=== PATIENT | male | born 1930 | race Caucasian/White ===

== ENCOUNTER 2017-07-23 19:13 | Observation (INO) ==
[2017-07-23] MEDS ORDERED: NITROGLYCERIN 2% OINT 1 INCH/GM PACK TOP STA (19:54)
[2017-07-23] MEDS ORDERED: ONDANSETRON 4 MG/2 ML VIAL IV STA (19:54)
[2017-07-23] MEDS ORDERED: MECLIZINE 25 MG TABLET PO STA (19:54)
[2017-07-23] MEDS ORDERED: ASPIRIN 325 MG TABLET PO STA (19:54)
[2017-07-23] MEDS ORDERED: MORPHINE 2 MG/1 ML SYRINGE IV STA (19:54)
[2017-07-23] MEDS ORDERED: ALUM/MAG/SIMETH/LIDO VISC 1:1 30 ML BOTTLE PO STA (19:54)
[2017-07-23] MEDS ORDERED: SODIUM CHLORIDE 0.9% 500 ML IV STA (19:54)
[2017-07-23] MEDS ORDERED: ONDANSETRON 4 MG/2 ML VIAL ONE (20:00)
[2017-07-23] MEDS ORDERED: NITROGLYCERIN 2% OINT 1 INCH/GM PACK TOP ONE (20:00)
[2017-07-23] MEDS ORDERED: MORPHINE 2 MG/1 ML SYRINGE ONE (20:00)
[2017-07-23] MEDS ORDERED: MECLIZINE 25 MG TABLET ONE (20:01)
[2017-07-23] MEDS ORDERED: ALUM/MAG/SIMETH/LIDO VISC 1:1 30 ML BOTTLE PO ONE (20:01)
--- NOTE | 2017-07-23 20:19 | CT Report ---
History: Near syncope. Dizziness. Nausea Date: 07/23/2017 Study: CT head without contrast Comparison exam: No previous head CT currently available Transaxial CT sections were obtained through the brain without contrast. The ventricles are midline in position without evidence of hydrocephalus. There is no mass or area of parenchymal hemorrhage. There is no gross CT evidence of acute cortical stroke. There is mild diffuse cerebral atrophy. There is a small amount of ill-defined low density in the periventricular white matter without mass effect compatible with changes of small vessel disease. There is an area of decreased density in the right mid thalamus laterally a 6 mm compatible with small lacunar infarct of uncertain chronicity. There is some mild heterogeneity of the ramesh which may be related to small vessel disease. There is no extra-axial hematoma. The sinuses are generally clear. There is no obvious skull fracture. 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 There is hyperdense opacity throughout the posterior chamber the right lobe compatible with previous vitreous hemorrhage. 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 No parenchymal hemorrhage. No definite acute intracranial process. Previous vitreous hemorrhage of the right eye This CT exam was performed using one or more the following dose reduction techniques: Automated exposure control, adjustment of the MA and/or KV according to patient size, or use of iterative reconstruction technique. PROCEDURE INTERPRETED AT [facility] DEPARTMENT OF RADIOLOGY Final Report Signed by: Dr. Mea Feliciano
--- NOTE | 2017-07-23 20:23 | Emergency Department Note ---
Benji Velez Gwan, am scribing for, and in the presence of, Bebo Card MD 20 :01. Kyaw Velez Charles R, MD, personally performed the services described in this documentation, ascribed by Mango Leblanc in my presence, and it is both accurate and complete . Arrival - Arrival Chief Complaint: Chest Pain ED Nursing Triage Note: pt brought in via ems with c/o dizziness, n/v. family reports pt had diaphoresis, chest pressure at onset. pt was given an aspirin per family. zofran 4mg en route. chest pressure has resolved at time of triage. pt denies any pmhx or home medications. Mode of Arrival: Stretcher Limitations: No Limitations Source: Patient, Old Records Reviewed, RN Notes Reviewed Time Seen by Provider: 07/23/17 19:38 - History of Present Illness HPI Narrative: Patient is a 87 y/o male who presents to the ED with a c/o dizziness, middle chest heaviness and n/v with an onset 1700 tonight. Patient stated that he was sitting at his computer when he decided to get up and turn on the news. Once he was at an upright standing position, he became dizzy. This prompted him to sit on the couch. He then began to have heaviness in his chest, N/V and diaphoresis. This prompted him to report to ED for further evaluation. Patient denies having a PCP, that his discomfort radiated to any other part of his body , any numbness/tingling in his face, any heart /medical problems or any FMHx of heart disease. During exam, patient stated that chest heaviness has subsided but stated that he is still dizzy. No other problems/complaints reported in ED. Onset (ago): hour(s) Consistency: constant Severity: moderate Allergies/Adverse Reactions: Allergies Allergy/AdvReac Type Severity Reaction Status Date / Time No Known Allergies Allergy Unverified 07/23/17 19:25 Home Medications: Home Medications Medication Instructions Recorded Confirmed Type No Known Home Medications [No 07/23/17 07/23/17 History Known Home Medications] Review of System - Review of System 12 point system: reviewed and no additional remarkable complaints except as stated - Review of System Constitutional: Present: as per HPI, diaphoresis. Absent: chills, fever Cardiovascular: Present: as per HPI, chest pain Gastrointestinal: Present: as per HPI, nausea, vomiting Neurological: Present: as per HPI, other (dizziness) Medical,Surgical,& Family Hx - Medical History HEENT: History of: Eye Problem (blind right eye) - Social History Smoking Status: Never smoker Frequency of Alcohol Use: None Type of Drug Use: None Exam Vital Signs: Vital Signs Temperature 97.5 F L 07/23/17 19:13 Pulse Rate 63 07/23/17 19:13 Respiratory Rate 18 07/23/17 19:13 Blood Pressure 188/96 07/23/17 19:13 O2 Sat by Pulse Oximetry 96 07/23/17 19:13 - General General appearance: alert, in no apparent distress - Head Head exam: Present: atraumatic, normocephalic - Eye Eye exam: Present: nystagmus (Worse when patient sits upright.). 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 ) - ENT ENT exam: Present: normal oropharynx, mucous membranes moist, TM's normal bilaterally, normal external ear exam - Neck Neck exam: Present: full ROM, trachea midline. Absent: tenderness - Chest Chest inspection: Present: symmetric chest wall rise. Absent: tenderness - Respiratory Respiratory exam: Present: normal lung sounds bilaterally. Absent: respiratory distress - Cardiovascular Cardiovascular exam: Present: regular rate, normal rhythm, normal heart sounds. Absent: murmur - Abdominal Exam Abdominal exam: Present: soft, normal bowel sounds. Absent: distention, tenderness - Extremities Exam Extremities exam: Present: full ROM. Absent: tenderness - Back Exam Back exam: Present: full ROM. Absent: tenderness - Neurological Exam Neurological exam: Present: alert, oriented X3, CN II-XII intact. Absent: motor sensory deficit - Psychiatric Psychiatric exam: Present: normal affect, normal mood - Skin Skin exam: Present: diaphoresis Course - Consultations Consultation #1: Hospitalist will admit patient Time: 21:55 Results - Labs CBC & BMP: 07/23/17 20:11 07/23/17 20:11 Lab Results: I have reviewed the patients labs Labs: Laboratory Tests 07/23/17 20:11 WBC 10.3 RBC 4.59 Hgb 15.0 Hct 43.0 Plt Count 187 Neut % (Auto) 80.1 H Lymph % (Auto) 13.4 L Neut # (Auto) 8.3 H Laboratory Tests 07/23/17 07/23/17 20:11 20:11 INR 1.0 PT Patient/Control Mix 10.7 D-Dimer, Quantitative 0.9 Sodium 142 Potassium 4.5 Chloride 107 Carbon Dioxide 31 BUN 21 H Creatinine 1.20 Glucose 109 H - Diagnostic Findings Procedure: Chest x-ray: report reviewed by me (Mild scar or subsegmental atelectasis left mid to lower lung. No definite acute process. 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 No parenchymal hemorrhage. no definite acute intracranial process. Previously vitreous hemorrhage of the right eye. ) Disposition Clinical Impression: Atypical chest pain, Dizziness, Nausea & vomiting, Near syncope Case discussed with: patient, patient's family Disposition: Still a Patient Condition: Stable Time of Disposition: 21:55
[2017-07-23 20:31] LABS: Basophils # 0.1 10*3/uL (0.0-0.2); Basophils % 0.5 % (0.0-0.8); Eosinophils # 0.1 10*3/uL (0.0-0.87); Eosinophils % 1.1 % (0.00-10.9); Immature Granulocytes % 0.4 %; Immature Granulocytes Absolute 0.04 #; Lymphocytes # 1.4 10*3/uL (1.4-4.0); Lymphocytes % 13.4 % (21.2-54.2); Mean Corpuscular HGB Conc 34.9 GM/DL (32-36); Mean Corpuscular Hemoglobin 33 PG (27-34); Mean Corpuscular Volume 93.7 FL (87-102); Mean Platelet Volume 10.2 FL (9.6-12.0); Monocytes # 0.5 10*3/uL (0.11-0.8); Monocytes % 4.5 % (1.7-12.7); Neutrophils # 8.3 10*3/uL (1.4-7.4); Neutrophils % 80.1 % (38.7-73.9); Platelet Count 187 T/CUMM (130-400); Red Blood Count 4.59 MC/CUMM (3.8-5.5); Red Cell Distribution Width 12.8 % (9.3-17.3); White Blood Count 10.3 T/CUMM (4-12)
--- NOTE | 2017-07-23 20:37 | XRay Report ---
History: Chest pain Date: 07/23/2017 Study: Chest x-ray AP portable Comparison exam: No previous The cardiac silhouette is upper normal in size. There is no mediastinal mass. The pulmonary vasculature is not engorged. There is some minor strandy subsegmental atelectasis or scar in the left mid to lower lung. There is no jatinder pneumonia. There is no gross pleural effusion. There is no acute osseous abnormality. Impression: Mild scar or subsegmental atelectasis left mid to lower lung. No definite acute process PROCEDURE INTERPRETED AT [facility] DEPARTMENT OF RADIOLOGY Final Report Signed by: Dr. Mae Feliciano
[2017-07-23 20:48] LABS: PT Patient Result 10.7 SECS
[2017-07-23 21:16] LABS: Magnesium 2.3 MG/DL (1.8-2.4)
[2017-07-23 21:22] LABS: Albumin 3.7 G/DL (3.4-5.0); Osmolality,Calculated 286.1 MOS/KG (273-304); Potassium 4.5 MMOL/L (3.5-5.1); Total Protein 6.7 G/DL (6.4-8.3)
--- NOTE | 2017-07-23 22:33 | Hospitalist History & Physical ---
Assessment and Plan (1) Atypical chest pain Status: Acute Current Visit: Yes (2) Dizziness Status: Acute Current Visit: Yes (3) Nausea and vomiting Status: Acute Assessment and plan: Our plan for this patient will be admitting him to a monitored bed. Will consult cardiology to evaluate this chest pain. Patient has a stroke per CT scan I believe that this is old. Patient has had no recent change neurologically.. But I do think it would be a good idea to check carotid Dopplers 2D ultrasound and fasting lipid profile. Current Visit: Yes History of Present Illness Chief complaint: Dizziness chest tightness History of present illness: Mr. James is a 87 year old male with no real significant medical problems presents to our ER [facility]. Patient was out cutting his grass this afternoon. He sat down on the computer when he got up he felt dizzy. At that time he sat down and a little while later he got nauseated and started throwing up. The checked his blood pressure was elevated. Patient then developed a pressure sensation in his chest it was a tightness in it to stay there did not radiate up to his arm or shoulder. He still feels a little lightheaded. He denies shortness of breath but did become diaphoretic. Patient was found to have a stroke stroke on CT scan and I was consulted to admit him through the emergency room. Home Medications Medication Instructions Recorded Confirmed Type No Known Home Medications [No 07/23/17 07/23/17 History Known Home Medications] Allergies Allergy/AdvReac Type Severity Reaction Status Date / Time No Known Allergies Allergy Unverified 07/23/17 19:25 Medical,Surgical,& Family Hx - Medical History HEENT: History of: Eye Problem (blind right eye) - Surgical History Additional Surgical History: eye surgeries - Family History Family History: Reports;: Family Hypertension - Social History Smoking Status: Never smoker Frequency of Alcohol Use: None Type of Drug Use: None 12 point system: reviewed and no additional remarkable complaints except as stated Exam - Constitutional Vitals: Period Temp Pulse Resp BP Sys/Manzo Pulse Ox Last 24 Hr 97.5 F-97.5 F 63-63 18-18 188-188/96-96 96 General appearance: normal weight - Head Head exam: Present: normal inspection - Eye Eye exam: Present: other (Patient has scarring on his right eye consistent with his injury) - ENT ENT exam: Present: normal exam - Neck Neck exam: Present: normal inspection - Respiratory Respiratory exam: Present: clear to auscultation bilaterally - Cardiovascular Cardiovascular exam: Present: regular rate and rhythm - GI/Abdominal GI/Abdominal exam: Present: normal bowel sounds - Extremities Exam Extremities exam: Present: normal inspection - Back Exam Back exam: Present: normal inspection - Neurological Exam Neurological exam: Present: alert - Psychiatric Psychiatric exam: Present: normal affect, normal mood - Skin Skin exam: Present: normal color Results - Labs CBC & BMP: 07/23/17 20:11 07/23/17 20:11
[2017-07-23] MEDS ORDERED: ACETAMINOPHEN 325 MG TABLET PO PRN (22:37)
[2017-07-23] MEDS ORDERED: ONDANSETRON 4 MG/2 ML VIAL IV PRN (22:37)
[2017-07-23] MEDS ORDERED: ZALEPLON 5 MG CAPSULE PO PRN (22:37)
[2017-07-23] MEDS ORDERED: LABETALOL 20 MG/4 ML SYRINGE IV PRN (22:37)
[2017-07-24] MEDS: NITROGLYCERIN 2% OINT 1 INCH/GM PACK TOP SCH ×4 (00:31→19:43)
[2017-07-24 01:21] LABS: Risk Ratio 5.07; VLDL CHOLESTEROL 14.2 MG/DL
--- NOTE | 2017-07-24 02:20 | EKG Report ---
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
[2017-07-24] MEDS: ENOXAPARIN 40 MG/0.4 ML SYRINGE SUBCUT SCH ×2 (07:16→14:57)
--- NOTE | 2017-07-24 07:49 | EKG Report ---
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
--- NOTE | 2017-07-24 08:30 | Ultrasound Report ---
Carotid artery ultrasound Indication: Vertigo Comparison: None available Color Doppler flow and spectral analysis was performed. Findings: Small amount of atherosclerotic plaque is present in both proximal internal carotid arteries. Right peak systolic velocity: Right CCA:57.2 Right proximal Internal Carotid Artery is 68.4 cm/s. Ratio of flow is 1.3 Right distal Internal Carotid is 76.1 cm/s . Left peak systolic velocity: Left CCA:83.1 Left proximal Internal carotid Artery is 38.7 cm/s . Ratio of flow is 0.6 Left distal Internal carotid Artery is 52.9cm/s Bilateral antegrade vertebral flow is seen. Impression: No evidence of hemodynamically significant stenosis is seen, 0-49% estimated stenosis. Consensus conference on the carotid ultrasound criteria used. Ultrasound images were captured and stored. PROCEDURE INTERPRETED AT [facility] DEPARTMENT OF RADIOLOGY Final Report Signed by: Dr. Kvng Brooks
--- NOTE | 2017-07-24 08:44 | Cardiology Consult Note ---
Assessment and Plan - Time spent with patient Time spent with patient: Greater than 30 minutes (1) Abnormal head CT Status: Acute Assessment and plan: SEE PLAN OF CARE LISTED BELOW. Current Visit: Yes (2) Atypical chest pain Status: Resolved Assessment and plan: SEE PLAN OF CARE LISTED BELOW. Current Visit: Yes (3) Dizziness Status: Acute Assessment and plan: SEE PLAN OF CARE LISTED BELOW. Current Visit: Yes (4) Nausea and vomiting Status: Acute Assessment and plan: SEE PLAN OF CARE LISTED BELOW. Current Visit: Yes (5) Hypertension Status: Acute Assessment and plan: SEE PLAN OF CARE LISTED BELOW. Current Visit: Yes (6) Dyslipidemia Status: Acute Assessment and plan: SEE PLAN OF CARE LISTED BELOW. Current Visit: Yes History of Present Illness - Data of Consult Patient: new to practice Consult date: 07/24/17 Requesting Physician: Elvin Rand - Consult Narrative Reason for consult: Atypical chest pain, dizziness History of present illness: Analytical Strategist: Charanjit Santoro PCP: None Mr. James is a 87 year old male without known history of coronary artery disease, not routinely followed by cardiology. Cardiac risk factors include: Advanced age and untreated dyslipidemia. Lifetime non-smoker. No significant family history of CAD. Patient is blind in his right eye. She has never undergone any cardiac workup. Denies heart catheterization or stress test in the past. Patient presented to [facility] with dizziness, nausea and vomiting. Yesterday evening patient became dizzy after standing up from his computer desk. He then went to sit and watch the news. He reports that his dizziness continued to worsen. He then developed chest heaviness, diaphoresis, nausea and abdominal pain. Chest tightness was nonradiating. Not associated with shortness of breath. Located midsternally. This lasted approximately 30 minutes. He reports that he had not eaten all day. He then vomited 3 times. This resolved his chest heaviness. He denies any associated heart racing or palpitations. He has no previous history of arrhythmias. He denies syncope. He became concerned and his called his [id number] who is a nurse to come and check on him. She came to check his blood pressure and his blood pressure was around 200/130. They been summoned EMS to transport him to the emergency department. Patient has had no further chest pain once arriving in the emergency department. Admitted under hospital medicine's service. Cardiology consulted to further evaluate chest heaviness and dizziness. Of note, patient remains very active. 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 He denies. Seeing any chest pain, heaviness or tightness with his daily activities. He denies easy fatigability, dyspnea on exertion or change in his exercise tolerance. Denies recent fever, chills, cough, orthopnea , dyspnea, PND, lower extremity swelling, heart palpitations/racing, melena and hematochezia. He denies any change in his mental status. Denies unilateral weakness and slurred speech. Patient was seen and examined on the telemetry unit. He is without complaints this morning. Denies chest pain, heaviness or tightness. Nausea and vomiting resolved. EKG without ischemic changes. Cardiac biomarkers negative 3. 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 MRI ordered for further clarity. These results are pending. It is possible that patient could have underlying cerebellar infarct that could have contributed to his symptomology. Will await MRI results. Will monitor telemetry for evidence of arrhythmias. Patient may be eligible for a loop recorder prior to discharge. Patient's chest pain is atypical in nature. Resolved after vomiting. Cardiac biomarkers negative 3. EKG does not reveal ischemic changes. Unable to initiate beta-blockade as patient is bradycardic. Aspirin and lipid-lowering agent added. JOAN inhibitor initiated to assist in blood pressure control. D-dimer minimally elevated at 0.9. Doppler ultrasound bilateral lower extremities ordered. Results pending. I will further discuss with Dr. Santoro and await his additional recommendations. IMPRESSION AND PLAN 1. ATYPICAL CHEST PAIN - Atypical in nature. Cardiac biomarkers negative 3. EKG does not reveal ischemic changes. Unable to initiate beta-blockade as patient is bradycardic. Aspirin and lipid-lowering agent added. Continue nitrates. 2. DIZZINESS - Head CT abnormal. MRI results pending. Carotid Doppler did not reveal any evidence of hemodynamically significant stenosis. Orthostatic vital signs ordered. No symptoms or evidence of arrhythmias. Will monitor for these on patient monitor. Patient may be eligible for loop recorder prior to discharge. D-dimer only minimally elevated at 0.9. Doppler ultrasound to bilateral lower extremities ordered. Results pending. 3. 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 MRI ordered for further clarity. These results are pending. It is possible that patient could have underlying cerebellar infarct that could have contributed to his symptomology. Will await MRI results. Will monitor telemetry for evidence of arrhythmias. Patient may be eligible for a loop recorder prior to discharge. 4. DYSLIPIDEMIA - Lipid panel reviewed. LDL 153. I have initiated statin. Repeat lipid panel in 4-6 weeks. 5. HYPERTENSION - JOAN inhibitor initiated. Will monitor renal function. Will further adjust medications as needed this hospitalization. CC: Gagan Conrad MD - Home Medications and Allergies Home Medications: Home Medications Medication Instructions Recorded Confirmed Type No Known Home Medications [No 07/23/17 07/23/17 History Known Home Medications] Allergies/Adverse Reactions: Allergies Allergy/AdvReac Type Severity Reaction Status Date / Time No Known Allergies Allergy Unverified 07/23/17 19:25 - Constitutional Constitutional: Present: as per HPI. Absent: chills, fatigue, fever(s), frequent falls, headache(s), lethargy, malaise, night sweats, weakness, weight gain, weight loss - Cardiovascular Cardiovascular: Present: as per HPI, diaphoresis, lightheadedness, other (Chest heaviness at rest, resolved with vomiting). Absent: claudication, dyspnea, dyspnea on exertion, edema, radiating jaw, neck or arm pain, orthopnea, palpitations, PND - Respiratory Respiratory: Present: as per HPI. Absent: cough, dyspnea, hemoptysis, dyspnea on exertion, wheezing, snoring, pain on inspiration, change in phlegm color - Gastrointestinal Gastrointestinal: Present: as per HPI, abdominal pain, nausea, vomiting. Absent : coffee ground emesis, constipation, cramping, diarrhea, heartburn, hematemesis , hematochezia, loose stools, melena - Neurological Neurological: Present: as per HPI, disequilibrium, dizziness. Absent: abnormal gait, abnormal speech, behavioral changes, focal weakness, frequent falls, headache(s), memory loss, syncope - Psychiatric Psychiatric: Present: as per HPI. Absent: anxiety, confusion, depression, panic attacks Medical,Surgical,& Family Hx - Medical History HEENT: History of: Eye Problem (blind right eye) - Family History Family History: Reports;: Family Hypertension - Social History Smoking Status: Never smoker Frequency of Alcohol Use: None Type of Drug Use: None Marital Status: Lives With:: Spouse Functional capacity: independent ambulation Physical Examination Vital Signs Temp Pulse Resp BP Pulse Ox 97.5 F L 63 18 188/96 96 07/23/17 19:13 07/23/17 19:13 07/23/17 19:13 07/23/17 19:13 07/23/17 19:13 Exam: General: Appears well with no apparent distress. Pleasant and cooperative. Appears comfortable. HEENT: PERRL, normocephalic, atraumatic. Mucous membranes moist. No jaundice noted. Conjunctiva moist and clear, sclerae anicteric Neck: No JVD/HJR, no thyromegaly or lymphadenopathy noted. No carotid bruit appreciated Cardiac: Regular rate and rhythm. No murmur rub or gallop. Lungs: Clear to auscultation without accessory muscle use to assist the respiratory pattern. Not requiring oxygen. Abdomen: Soft, bowel sounds normoactive. Nontender and nondistended. No abdominal bruit or thrill noted. No masses noted. Extremities: No clubbing, cyanosis noted. No edema noted. Upper extremity pulses 2+. Lower extremity pulses 2+. Capillary refill less than 3 seconds. Skin: No unusual lesions or rashes. No skin breakdown appreciated. Neuro: Awake, alert and oriented 3. Moves all extremities well without hemiparesis or paralysis. No essential tremor is appreciated. Result/EKG - Labs CBC & BMP: 07/23/17 20:11 07/23/17 20:11 Lab Results: I have reviewed the past 24 hour labs Labs: Laboratory Results - last 24 hr 07/23/17 07/23/17 07/23/17 20:11 20:11 20:11 WBC RBC Hgb Hct MCV MCH MCHC RDW Plt Count MPV Neut % (Auto) Lymph % (Auto) [place] % (Auto) Eos % (Auto) Baso % (Auto) Neut # (Auto) Lymph # (Auto) [place] # (Auto) Eos # (Auto) Baso # (Auto) Immature Gran % Nucleated RBC % Immature Gran # Nucleated RBCs # Immature Plt Fraction INR 1.0 PT Patient/Control Mix 10.7 D-Dimer, Quantitative 0.9 Sodium 142 Potassium 4.5 Chloride 107 Carbon Dioxide 31 Anion Gap 8.5 BUN 21 H Creatinine 1.20 GFR Calculation 61 BUN/Creatinine Ratio 17.00 Glucose 109 H Hemoglobin A1c Calculated Osmolality 286.1 Calcium 9.0 Magnesium Total Bilirubin 1.00 AST 25 ALT 22 Alkaline Phosphatase 87 Troponin I B-Natriuretic Peptide 18 Total Protein 6.7 Albumin 3.7 Globulin 3.0 Albumin/Globulin Ratio 1.2 Triglycerides Cholesterol LDL Cholesterol VLDL Cholesterol HDL Cholesterol Heart Disease Risk Ratio Lipase 07/23/17 07/23/17 07/23/17 20:11 20:11 20:11 WBC 10.3 RBC 4.59 Hgb 15.0 Hct 43.0 MCV 93.7 MCH 33 MCHC 34.9 RDW 12.8 Plt Count 187 MPV 10.2 Neut % (Auto) 80.1 H Lymph % (Auto) 13.4 L [place] % (Auto) 4.5 Eos % (Auto) 1.1 Baso % (Auto) 0.5 Neut # (Auto) 8.3 H Lymph # (Auto) 1.4 [place] # (Auto) 0.5 Eos # (Auto) 0.1 Baso # (Auto) 0.1 Immature Gran % 0.4 Nucleated RBC % 0.0 Immature Gran # 0.04 Nucleated RBCs # 0.00 Immature Plt Fraction 0.0 INR PT Patient/Control Mix D-Dimer, Quantitative Sodium Potassium Chloride Carbon Dioxide Anion Gap BUN Creatinine GFR Calculation BUN/Creatinine Ratio Glucose Hemoglobin A1c Calculated Osmolality Calcium Magnesium 2.3 Total Bilirubin AST ALT Alkaline Phosphatase Troponin I < 0.015 B-Natriuretic Peptide Total Protein Albumin Globulin Albumin/Globulin Ratio Triglycerides Cholesterol LDL Cholesterol VLDL Cholesterol HDL Cholesterol Heart Disease Risk Ratio Lipase 125.0 07/23/17 07/23/17 07/23/17 23:59 23:59 23:59 WBC RBC Hgb Hct MCV MCH MCHC RDW Plt Count MPV Neut % (Auto) Lymph % (Auto) [place] % (Auto) Eos % (Auto) Baso % (Auto) Neut # (Auto) Lymph # (Auto) [place] # (Auto) Eos # (Auto) Baso # (Auto) Immature Gran % Nucleated RBC % Immature Gran # Nucleated RBCs # Immature Plt Fraction INR PT Patient/Control Mix D-Dimer, Quantitative Sodium Potassium Chloride Carbon Dioxide Anion Gap BUN Creatinine GFR Calculation BUN/Creatinine Ratio Glucose Hemoglobin A1c 5.7 Calculated Osmolality Calcium Magnesium Total Bilirubin AST ALT Alkaline Phosphatase Troponin I < 0.015 B-Natriuretic Peptide Total Protein Albumin Globulin Albumin/Globulin Ratio Triglycerides 71 Cholesterol 213 H LDL Cholesterol 153.0 VLDL Cholesterol 14.2 HDL Cholesterol 42 Heart Disease Risk Ratio 5.07 Lipase 07/24/17 04:27 WBC RBC Hgb Hct MCV MCH MCHC RDW Plt Count MPV Neut % (Auto) Lymph % (Auto) [place] % (Auto) Eos % (Auto) Baso % (Auto) Neut # (Auto) Lymph # (Auto) [place] # (Auto) Eos # (Auto) Baso # (Auto) Immature Gran % Nucleated RBC % Immature Gran # Nucleated RBCs # Immature Plt Fraction INR PT Patient/Control Mix D-Dimer, Quantitative Sodium Potassium Chloride Carbon Dioxide Anion Gap BUN Creatinine GFR Calculation BUN/Creatinine Ratio Glucose Hemoglobin A1c Calculated Osmolality Calcium Magnesium Total Bilirubin AST ALT Alkaline Phosphatase Troponin I < 0.015 B-Natriuretic Peptide Total Protein Albumin Globulin Albumin/Globulin Ratio Triglycerides Cholesterol LDL Cholesterol VLDL Cholesterol HDL Cholesterol Heart Disease Risk Ratio Lipase - EKG EKG results: interpreted by me, sinus rhythm EKG shows: bradycardia
[2017-07-24] MEDS ORDERED: ASPIRIN 325 MG TABLET PO SCH (09:00)
--- NOTE | 2017-07-24 14:47 | Magnetic Resonance Report ---
MRI brain without contrast Indication: Vertigo Comparison: None available Technique: Axial sagittal and coronal imaging of the brain is performed without contrast. T1, T2, FLAIR and diffusion weighted sequences are performed. Findings: No evidence of restricted diffusion seen. No evidence of intracranial hemorrhage, mass, mass effect or midline shift is seen. There is moderate diffuse cerebral atrophy. There are foci of white matter T2 signal hyperintensity in both cerebral hemispheres, periventricular and subcortical in location likely related to chronic microvascular disease. Remaining brain parenchyma has normal signal and differentiation. The ventricles and cisterns are appropriate in caliber. Posterior fossa, mid brain and pituitary gland appear within normal limits. Right ocular globe has normal signal and morphology. No other evidence of cranial or skull base abnormality seen. Impression: No evidence of acute process demonstrated. Moderate diffuse cerebral atrophy and areas of white matter T2 signal hyperintensity, likely related to chronic microvascular changes. Abnormal signal morphology of the right ocular globe likely previous injury. PROCEDURE INTERPRETED AT [facility] DEPARTMENT OF RADIOLOGY Final Report Signed by: Dr. Kvng Brooks
[2017-07-24] MEDS: ASPIRIN EC 81 MG TABLET PO SCH (14:57)
[2017-07-24] MEDS: LISINOPRIL 5 MG TABLET PO SCH (14:57)
[2017-07-24] MEDS: PANTOPRAZOLE 40 MG TABLET PO SCH (14:57)
--- NOTE | 2017-07-24 16:25 | Ultrasound Report ---
History: Elevated d-dimer. Atypical chest pain Date: 07/24/2017 Study: Bilateral lower extremity color-flow venous Doppler study Comparison exam: No previous Color Doppler, wave form analysis, and compression analysis of the deep veins of both lower extremities from the common femoral vein level through the popliteal vein level shows that the veins are readily compressible. There is no abnormal intraluminal material to suggest thrombus. Waveform analysis is unremarkable. Ultrasound images were captured and archived Impression: No evidence of acute DVT PROCEDURE INTERPRETED AT [facility] DEPARTMENT OF RADIOLOGY Final Report Signed by: Dr. Mae Feliciano
--- NOTE | 2017-07-24 16:43 | Hospitalist Progress Note ---
Assessment and Plan (1) Atypical chest pain Status: Resolved Assessment and plan: Serial troponin negative Cardiology assisting Current Visit: Yes (2) Dizziness Status: Acute Assessment and plan: CT head and carotid doppler without acute process Monitoring on telemetry Current Visit: Yes (3) Hypertension Status: Acute Assessment and plan: Started on lisinopril Current Visit: Yes (4) Dyslipidemia Status: Acute Assessment and plan: Lipitor Current Visit: Yes Hospitalist: Subjective Interval history: No acute events overnight. Patient denies chest pain or dizziness since admission. Exam - Constitutional Vitals: Period Temp Pulse Resp BP Sys/Manzo Pulse Ox Last 24 Hr 97.1 F-98.8 F 50-64 13-20 115-188/62-96 92-97 General appearance: normal weight - Head Head exam: Present: normocephalic, atraumatic - Eye Eye exam: Present: EOMI Pupils: Present: BROOKE - ENT ENT exam: Present: normal exam - Neck Neck exam: Present: normal inspection - Respiratory Respiratory exam: Present: clear to auscultation bilaterally. Absent: wheezes - Cardiovascular Cardiovascular exam: Present: regular rate and rhythm - GI/Abdominal GI/Abdominal exam: Present: normal bowel sounds, soft. Absent: tenderness - Extremities Exam Extremities exam: Present: normal inspection - Back Exam Back exam: Present: normal inspection - Neurological Exam Neurological exam: Present: alert, oriented X3 - Psychiatric Psychiatric exam: Present: normal affect, normal mood - Skin Skin exam: Present: warm, intact Results - Labs CBC & BMP: 07/23/17 20:11 07/23/17 20:11
[2017-07-24] MEDS ORDERED: ATORVASTATIN 40 MG TABLET PO SCH (21:00)
--- NOTE | 2017-07-24 21:21 | ECHO Report ---
Audie James Exam Date: 07/24/2017 08:09 Referring Physician: Technologist: Pippa Evangelista RDCS Age: 87 Ht (in): 70 Wt (lb): 165 Gender: M Exam Location: [facility] Echo Indications: Dizziness and giddiness, Chest pain, unspecified, Nausea BP: 128 / 62 HR: 50 Rhythm: Sinus Technical Quality: IMPRESSIONS Normal left ventricular cavity size. Normal left ventricular wall thickness. Normal systolic function, left ventricular ejection fraction estimated at 60%. Grade 1 diastolic dysfunction Mild left atrial enlargement. Mildly thickened mitral valve. Mild mitral annular calcification. Mild mitral valve regurgitation. Aortic valve sclerosis, with borderline stenosis, calculated valve area 1.5 cm. No regurgitation. MEASUREMENTS (Male / Female) Normal Values 2D ECHO LV Diastolic Diameter PLAX 5.3 cm 4.2 - 5.9 / 3.9 - 5.3 cm LV Systolic Diameter PLAX 2.8 cm LV Fractional Shortening PLAX 46.7 % IVS Diastolic Thickness 0.9 cm 0.6 - 1.0 / 0.6 - 0.9 cm LVPW Diastolic Thickness 0.9 cm 0.6 - 1.0 / 0.6 - 0.9 cm RV Internal Dim ED PLAX 3.1 cm Aortic Root Diameter 3.5 cm LA Systolic Diameter LX 3.8 cm 3.0 - 4.0 / 2.7 - 3.8 cm DOPPLER TR Peak Velocity 261.0 cm/s TR Peak Gradient 27.2 mmHg FINDINGS Left Ventricle Normal left ventricular cavity size. Normal left ventricular wall thickness. Normal systolic function, left ventricular ejection fraction estimated at 60%. Grade 1 diastolic dysfunction Right Ventricle The right ventricle is normal in size and function. Right Atrium The right atrium is normal in size. Left Atrium The left atrium is mildly dilated Mitral Valve Mildly thickened mitral valve. Mild mitral annular calcification. Mild mitral valve regurgitation. Aortic Valve Aortic valve sclerosis, with borderline stenosis, calculated valve area 1.5 cm. No regurgitation. Tricuspid Valve Morphologically normal tricuspid valve. Mild tricuspid valve regurgitation. Tricuspid regurgitation velocities suggest a PAP of 37 mmHg. Pulmonic Valve Morphologically normal pulmonic valve without significant stenosis. There is no pulmonic regurgitation. Pericardium Normal pericardium without effusion. Aorta Normal ascending aorta dimension. Hector Santoro (Electronically Signed) Final Date: 24 July 2017 21:19
[2017-07-25] MEDS: NITROGLYCERIN 2% OINT 1 INCH/GM PACK TOP SCH ×3 (00:01→13:11)
[2017-07-25 03:53] LABS: Basophils # 0.1 10*3/uL (0.0-0.2); Basophils % 0.8 % (0.0-0.8); Eosinophils # 0.2 10*3/uL (0.0-0.87); Eosinophils % 3.4 % (0.00-10.9); Hematocrit 41.6 VOL% (42.0-52.0); Hemoglobin 13.8 GM/DL (14.0-18.0); Immature Granulocytes % 0.3 %; Immature Granulocytes Absolute 0.02 #; Lymphocytes # 2.3 10*3/uL (1.4-4.0); Lymphocytes % 38.4 % (21.2-54.2); Mean Corpuscular HGB Conc 33.2 GM/DL (32-36); Mean Corpuscular Hemoglobin 32 PG (27-34); Mean Corpuscular Volume 96.1 FL (87-102); Mean Platelet Volume 10.5 FL (9.6-12.0); Monocytes # 0.5 10*3/uL (0.11-0.8); Monocytes % 7.6 % (1.7-12.7); Neutrophils # 2.9 10*3/uL (1.4-7.4); Neutrophils % 49.5 % (38.7-73.9); Platelet Count 187 T/CUMM (130-400); Red Blood Count 4.33 MC/CUMM (3.8-5.5); White Blood Count 5.9 T/CUMM (4-12)
[2017-07-25 04:31] LABS: Calcium 8.2 MG/DL (8.5-10.1); Magnesium 2.4 MG/DL (1.8-2.4); Osmolality,Calculated 288.8 MOS/KG (273-304); Potassium 4.4 MMOL/L (3.5-5.1)
--- NOTE | 2017-07-25 07:20 | EKG Report ---
Stationary ECG Study [facility] Test Date: 07/25/2017 7:18:48 AM Pat Name: JAE IGNACIO Department: Room: 278 Gender: M Spout Positioner: NANCY : 1930 Requested by: Connie Bass Order Number: [id number] Reading MD: MILLIE ARRIETA Intervals [place] Rate: 56 P: 63 CT: 178 QRS: 9 QRSD: 89 T: 73 QT: 408 QTc: 401 Interpretive Statements SINUS RHYTHM SEPTAL MYOCARDIAL INFARCTION, OF INDETERMINATE AGE Electronically Signed On 07-25-17 21:06:50 CDT by MILLIE ARRIETA [email or web address]
[2017-07-25] MEDS: LISINOPRIL 5 MG TABLET PO SCH (10:46)
[2017-07-25] MEDS: ENOXAPARIN 40 MG/0.4 ML SYRINGE SUBCUT SCH (10:46)
[2017-07-25] MEDS: ASPIRIN EC 81 MG TABLET PO SCH (10:46)
[2017-07-25] MEDS: PANTOPRAZOLE 40 MG TABLET PO SCH (10:47)
--- NOTE | 2017-07-25 12:47 | Cardiology Progress Note ---
Assessment and Plan (1) Abnormal head CT Status: Acute Assessment and plan: SEE PLAN OF CARE LISTED BELOW. Current Visit: Yes (2) Atypical chest pain Status: Resolved Assessment and plan: SEE PLAN OF CARE LISTED BELOW. Current Visit: Yes (3) Dizziness Status: Acute Assessment and plan: SEE PLAN OF CARE LISTED BELOW. Current Visit: Yes (4) Nausea and vomiting Status: Acute Assessment and plan: SEE PLAN OF CARE LISTED BELOW. Current Visit: Yes (5) Hypertension Status: Acute Assessment and plan: SEE PLAN OF CARE LISTED BELOW. Current Visit: Yes (6) Dyslipidemia Status: Acute Assessment and plan: SEE PLAN OF CARE LISTED BELOW. 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 Santoro PCP: None SUMMARY Mr. James is a 87 year old male without known history of coronary artery disease, not routinely followed by cardiology. Cardiac risk factors include: Advanced age and untreated dyslipidemia. Lifetime non-smoker. No significant family history of CAD. Patient is blind in his right eye. Patient was admitted with GI discomfort, chest pain not typical for angina. EKG, cardiac biomarkers unremarkable mild baseline bradycardia. Head CT and brain MRI suggestive of old disease, possibly of lacunar origin. No ACS suspected. 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 MRI revealed moderate diffuse cerebral atrophy. Neurology has been consulted today for further clarification. If Dr. Vásquez feels that patient has had TIA secondary to embolic source. Patient may benefit from implantation of loop recorder as he may have underlying atrial fibrillation. We will await Dr. Vásquez's recommendations. If clinically indicated, can plan for implantation of loop recorder prior to discharge. 2016 Patient seen and examined on the telemetry unit. at bedside. Patient is upset and wishes to go home. He has threatened to leave AMA. After discussing with him and his he has agreed to stay and await neurology's recommendations. He has had no further chest heaviness, dizziness or GI discomfort. He feels back to his normal self. However, it is questionable whether patient has had a TIA secondary to embolic source. We will need neurology's opinion regarding whether patient will benefit from loop recorder to monitor for underlying silent atrial fibrillation as patient's head CT and MRI results were inconsistent. At this point, we will continue with current plan of care. Await neurology recommendations. Patient will most likely be eligible for discharge later today if okay with Dr. Vásquez. I will further discuss with Dr. Santoro and await his additional recommendations. IMPRESSION AND PLAN 1. ATYPICAL CHEST PAIN - Atypical in nature. Chest pain is not suggestive of angina. If recurs and no other etiology established, we may consider a stress test, can be pursued as an outpatient. There is no ACS. Unable to initiate beta-blockade as patient is bradycardic. Continue aspirin and lipid-lowering agent. 2. DIZZINESS -no further dizziness this hospitalization. Orthostatic vital signs reviewed. Patient did have orthostasis documented earlier today. However , patient was asymptomatic with this. We will continue to monitor. Neurology has been consulted today for further clarification of abnormal CT. If Dr. Vásquez feels that patient has had TIA secondary to embolic source. Patient may benefit from implantation of loop recorder as he may have underlying atrial fibrillation. We will await Dr. Vásquez's recommendations. If clinically indicated, can plan for implantation of loop recorder prior to discharge. 3. 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 MRI revealed moderate diffuse cerebral atrophy. Neurology has been consulted today for further clarification. If Dr. Vásquez feels that patient has had TIA secondary to embolic source. Patient may benefit from implantation of loop recorder as he may have underlying atrial fibrillation. We will await Dr. Vásquez's recommendations. If clinically indicated, can plan for implantation of loop recorder prior to discharge. 4. DYSLIPIDEMIA - LDL 153. Continue statin. Repeat lipid panel in 4-6 weeks. 5. HYPERTENSION - Controlled. Continue current plan of care. Exam (Progress Note) - Constitutional Vitals: Period Temp Pulse Resp BP Sys/Manzo Pulse Ox Last 24 Hr 98.1 F-99.1 F 52-73 16-18 94-156/51-94 92-96 Exam: General: Appears well with no apparent distress. Pleasant and cooperative. Appears comfortable. HEENT: PERRL, normocephalic, atraumatic. Mucous membranes moist. No jaundice noted. Conjunctiva moist and clear, sclerae anicteric Neck: No JVD/HJR, no thyromegaly or lymphadenopathy noted. No carotid bruit appreciated Cardiac: Regular rate and rhythm. No murmur rub or gallop. Lungs: Clear to auscultation without accessory muscle use to assist the respiratory pattern. Not requiring oxygen. Abdomen: Soft, bowel sounds normoactive. Nontender and nondistended. No abdominal bruit or thrill noted. No masses noted. Extremities: No clubbing, cyanosis noted. No edema noted. Upper extremity pulses 2+. Lower extremity pulses 2+. Capillary refill less than 3 seconds. Skin: No unusual lesions or rashes. No skin breakdown appreciated. Neuro: Awake, alert and oriented 3. Moves all extremities well without hemiparesis or paralysis. No essential tremor is appreciated. Result/EKG - Labs CBC & BMP: 07/25/17 03:05 07/25/17 03:05 Lab Results: I have reviewed the past 24 hour labs Labs: Laboratory Results - last 24 hr 07/25/17 07/25/17 07/25/17 03:05 03:05 07:50 WBC 5.9 D RBC 4.33 Hgb 13.8 L Hct 41.6 L MCV 96.1 MCH 32 MCHC 33.2 RDW 13.0 Plt Count 187 MPV 10.5 Neut % (Auto) 49.5 Lymph % (Auto) 38.4 [place] % (Auto) 7.6 Eos % (Auto) 3.4 Baso % (Auto) 0.8 Neut # (Auto) 2.9 Lymph # (Auto) 2.3 [place] # (Auto) 0.5 Eos # (Auto) 0.2 Baso # (Auto) 0.1 Immature Gran % 0.3 Nucleated RBC % 0.0 Immature Gran # 0.02 Nucleated RBCs # 0.00 Immature Plt Fraction 0.0 Sodium 144 Potassium 4.4 Chloride 110 H Carbon Dioxide 31 Anion Gap 7.4 BUN 24 H Creatinine 1.30 GFR Calculation 55 BUN/Creatinine Ratio 18.00 Glucose 82 POC Glucose 90 Calculated Osmolality 288.8 Calcium 8.2 L Magnesium 2.4
--- NOTE | 2017-07-25 15:46 | Neurology Consult Note ---
History of Present Illness History of present illness: Mr. James is a 87 year old right handed white gentleman without significant past medical history admitted to the hospital with acute dizzy spell along with nausea and vomiting. Patient was out cutting his grass Sunday. He sat down on the computer when he got up he felt dizzy. At that time he sat down and a little while later he got nauseated and started throwing up. The checked his blood pressure was elevated. Patient then developed a pressure sensation in his chest it was a tightness in it to stay there did not radiate up to his arm or shoulder. He was brought to the hospital for further evaluation. A CT of the brain reveals possible stroke however MRI of the brain is unremarkable completely. Symptoms lasted for 1-2 hours and resolved completely. No residual problems reported and never had any similar symptoms before. Carotid ultrasound is unremarkable. Lipid profile shows cholesterol of 213. Echo shows ejection fraction of 60%. Home Medications Medication Instructions Recorded Confirmed Type No Known Home Medications [No 07/23/17 07/23/17 History Known Home Medications] Allergies Allergy/AdvReac Type Severity Reaction Status Date / Time No Known Allergies Allergy Unverified 07/23/17 19:25 12 point system: reviewed and no additional remarkable complaints except as stated Medical,Surgical,& Family Hx - Medical History HEENT: History of: Eye Problem (blind right eye) - Family History Family History: Reports;: Family Hypertension - Social History Smoking Status: Never smoker Frequency of Alcohol Use: None Type of Drug Use: None Exam - Constitutional Vitals: Period Temp Pulse Resp BP Sys/Manzo Pulse Ox Last 24 Hr 98.1 F-99.1 F 52-73 16-18 94-156/51-94 93-96 Exam: GENERAL: Patient is in no acute distress. NECK: Neck is supple. There is no JVD. No carotid bruits present. No thyroid masses. CVS: First and second heart sounds are normal. There is no S3 present. Regular rate and rhythm. RESPIRATORY: Lungs are clear to auscultation without any rales or rhonchi. ABDOMEN: Soft and non-tender. Bowel sounds are present. There is no hepatosplenomegaly. EXT: There is no palpable edema. Peripheral pulses are present. 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 Strength in the right 5/5 Strength in the left 5/5 Sensory: Grossly intact for all the modalities of PP, LT and temp sense Reflexes: 1+ and symmetrical Cerebellar function: Normal finger to nose and heel to shields testing. Toes: Equivocal Gait: Normal heel to heel and toe to toe and tandem walk. Results - Labs CBC & BMP: 07/25/17 03:05 07/25/17 03:05 Assessment and Plan (1) TIA (transient ischemic attack) Status: Acute Assessment and plan: Continue aspirin a day Continue Lipitor at the same Okay to go home from neuro standpoint Thank you for the consult Current Visit: Yes
[2017-07-25 16:05] VITALS: BP 120/65
--- NOTE | 2017-07-25 16:33 | Discharge Summary ---
Hospital Course - Hospital Course Hospital Course: Mr. James is a 87 year old male with no real significant medical problems who is admitted with atypical chest pain and dizziness. Cardiology was consulted, serial troponons and EKG unremarkable for acute coronary syndrome. CT head with concern for small lacunar infarct. Neurology was consulted. MRI head without acute process. During admission patient found to have hypertension and dyslipidemia. He was started on lisinopril and lipitor. He has now reached maximal benefit of inpatient stay and will be discharged to home. - Time spent with patient Time with patient DS: Less than 30 minutes (25) Diagnosis - Discharge Diagnosis (1) Atypical chest pain Status: Resolved (2) Dizziness Status: Resolved (3) Hypertension Status: Chronic (4) Dyslipidemia Status: Chronic Discharge Plan - Discharge Data Disposition: Disch To Home/Self Care Condition at Discharge: Stable Discharge Diet: low salt diet Activity: increase activity as tolerated Hygiene: no restrictions Weight Bearing at Discharge: weight bear as tolerated Driving: no restrictions Contact your physician if you experience:: fever over 101, Shortness of breath - Discharge Medications New Atorvastatin [Lipitor] 40 mg PO BEDTIME #30 tablet Aspirin EC Tab 81 mg PO DAILY tablet Lisinopril [Prinivil] 5 mg PO DAILY #30 tablet - Follow Up or Referral - Forms/Instructions Exam - Constitutional Vitals: Period Temp Pulse Resp BP Sys/Manzo Pulse Ox Last 24 Hr 98.1 F-99.1 F 52-73 16-20 94-156/51-94 93-96 General appearance: normal weight - Head Head exam: Present: normocephalic, atraumatic - Eye Eye exam: Present: EOMI Pupils: Present: BROOKE - ENT ENT exam: Present: normal exam - Neck Neck exam: Present: normal inspection - Respiratory Respiratory exam: Present: clear to auscultation bilaterally - Cardiovascular Cardiovascular exam: Present: regular rate and rhythm - GI/Abdominal GI/Abdominal exam: Present: normal bowel sounds, soft. Absent: tenderness, rebound - Extremities Exam Extremities exam: Present: normal inspection - Back Exam Back exam: Present: normal inspection - Neurological Exam Neurological exam: Present: alert, oriented X3 - Psychiatric Psychiatric exam: Present: normal affect, normal mood - Skin Skin exam: Present: warm, intact Discharge Results Procedures and tests throughout hospitalization: Pending Orders 07/23/17 19:55 Urinalysis Stat 07/26/17 04:00 BMP w/ Mg [Basic Metabolic Panel w/Mg] IN AM CBC [Comp Blood Count Auto Diff] IN AM 07/27/17 04:00 BMP w/ Mg [Basic Metabolic Panel w/Mg] IN AM CBC [Comp Blood Count Auto Diff] IN AM Labs on day of discharge: Labs from last 24 hours 07/25/17 07/25/17 07/25/17 07:50 03:05 03:05 WBC 5.9 D RBC 4.33 Hgb 13.8 L Hct 41.6 L MCV 96.1 MCH 32 MCHC 33.2 RDW 13.0 Plt Count 187 MPV 10.5 Neut % (Auto) 49.5 Lymph % (Auto) 38.4 [place] % (Auto) 7.6 Eos % (Auto) 3.4 Baso % (Auto) 0.8 Neut # (Auto) 2.9 Lymph # (Auto) 2.3 [place] # (Auto) 0.5 Eos # (Auto) 0.2 Baso # (Auto) 0.1 Immature Gran % 0.3 Nucleated RBC % 0.0 Immature Gran # 0.02 Nucleated RBCs # 0.00 Immature Plt Fraction 0.0 Sodium 144 Potassium 4.4 Chloride 110 H Carbon Dioxide 31 Anion Gap 7.4 BUN 24 H Creatinine 1.30 GFR Calculation 55 BUN/Creatinine Ratio 18.00 Glucose 82 POC Glucose 90 Calculated Osmolality 288.8 Calcium 8.2 L Magnesium 2.4 DS: Provider Date of admission: 07/23/17 22:37 Primary care physician: . No PCP Attending physician on admission: Elvin Rand MD Consults: 07/23/17 22:43 Consult to Physician [CONS] Routine Comment: Consulting Provider: Cardiology - [facility] Consult to Specialist Group: Cardiology Person Notified: Chad Date Notified: 07/24/17 Time Notified: 07:40 07/24/17 20:06 Consult to Physician [CONS] Routine Comment: Consulting Provider: Chau Vásquez Consult to Specialist Group: Neurology When should Consulting Provider be notified: In am Discharging clinician: Gagan Conrad MD
== END 2017-07-25 16:59 | disposition home or self-care (01) ==
LOC: N.ED 19:13 → N.EDINP 19:13 → SUATTDRO 22:37 → N.TELES 23:24
PROVIDERS: ADMIT Internal Medicine; ATTEND Internal Medicine